=== PATIENT | female | born 1955 | race Caucasian/White ===

== ENCOUNTER → 2017-04-16 | Outpatient (CLI) | payer BC ==
[~2017-04-16] MED LIST: LEVO75TA5 PO; LISI1TAB7 PO; PRAV80TA2 PO
--- NOTE | 2017-04-17 17:28 | KCIC ---
Bilateral digital screening mammograms with CAD: HISTORY COMPARISON Comparison is made to previous study dated 08/25/2015. FINDINGS Breast density category B. The skin and nipples show no abnormalities. No abnormal lymph nodes are seen in the axilla. The breast parenchyma shows scattered fibroglandular density. There are no dominant masses, suspicious calcifications or architectural distortions. Benign appearing calcifications are present IMPRESSION No evidence of malignancy. Recommend routine annual mammographic screening. This study was interpreted with the benefit of Computerized Aided Detection (CAD). Mammography is not 100% sensitive in detecting breast cancer. Therefore, a self breast exam and a clinical breast exam are very important. A negative mammogram does not negate a clinically suspicious finding and should not result in a delay in biopsying a clinically suspicious abnormality. BI-RADS category 2. Benign. This patient's information has been entered into a reminder system for the patient to be notified with the results of this examination and a target date for her next mammograms. Electronically signed by: Reina Reese MD (April 17, 2017 17:27:09)
== END | disposition home or self-care (01) ==
LOC: KCIC MAMMO 16:05
PROVIDERS: ATTEND Family Medicine
DX: Z12.31 Encounter for screening mammogram for malignant neoplasm of breast (principal)
CPT/HCPCS: G0202; 77067

== ENCOUNTER → 2019-08-17 | Outpatient (CLI) | payer OTHER ==
[~2019-08-17] MED LIST changes: +LISI1TAB20 PO; -LISI1TAB7 PO
--- NOTE | 2019-08-17 17:53 | KCIC ---
Bilateral digital screening mammograms with 3-D tomosynthesis: Reason for examination: Routine screening. Comparison is made to previous studies dated 04/16/2017 and 08/25/2015. Bilateral mammograms in CC and oblique projections were obtained with 2-D imaging and 3-D tomosynthesis imaging on a Siemens Inspiration unit and reviewed on the workstation. Interpretation was made with the benefit of CAD. The skin and nipples show no abnormalities. No abnormal axillary lymph nodes are seen. The breast parenchyma shows scattered fatty and fibroglandular density. (Breast density: Category B.) There are small nodular parenchymal densities seen bilaterally which appear to be stable. There are no new dominant masses, suspicious calcifications or architectural distortion. Benign calcifications are present. Impression: No evidence of malignancy. Recommend routine screening. BI-RAD Category 2: Benign. "Our facility is accredited by the [employer] Mammography Program." This patient's information has been entered into a reminder system for the patient to be notified with the results of her examination and a target date for the next mammogram. Electronically signed by: Rosa Reese MD (08/17/2019 5:50 PM) [id number]
== END | disposition home or self-care (01) ==
LOC: KCIC MAMMO 16:03
PROVIDERS: ATTEND Family Medicine
DX: Z12.31 Encounter for screening mammogram for malignant neoplasm of breast (principal); N64.89 Other specified disorders of breast
CPT/HCPCS: 77063; 77067

== ENCOUNTER → 2021-03-08 | Day surgery (SDC) | payer OTHER ==
[~2021-03-08] MED LIST changes: +IV RINGERS,LACTATED 1000ML 1,000 ML IV ONE; +PROPOFOL 10 MG/ML (20ML) VIAL. IV ONE
[2021-03-08 08:55] VITALS: BP 153/74
--- NOTE | 2021-03-10 11:16 | PATHOLOGY ---
[facility] Accession Number: [id number] . 01 Material submitted: . esophagus - DISTAL ESOPHAGEAL BIOPSY. Modifiers: distal . 01 Clinical history: . GERD . EGD . EPIGASTRIC PAIN . 02 Diagnosis: Esophageal biopsies, distal esophagus: - Reflux esophagitis. . ([facility]:mm; 03/10/2021) [facility] 03/10/2021 1014 Local . 02 Comment: Sections of the distal esophageal biopsy reveal multiple segments of tangentially-oriented and obviously hyperplastic squamous esophageal mucosa, in addition to a segment of gastric mucosa showing mild chronic inflammation. The findings are consistent with reflux esophagitis. There is no evidence of Higgins's change, dysplasia, or malignancy. . ([facility]:mm; 03/10/2021) . 02 Electronically signed: . Devaughn Ramirez MD, Pathologist NPI- [id number] . 01 Gross description: . The specimen is received in formalin, labeled "Marilee Cigich, distal esophageal biopsies". Received are four segments of pale ramírez tissue ranging in size from 0.2-0.5 cm in maximum dimensions. The specimen is submitted entirely in cassette A1. ([facility]; 03/09/2021) [facility] 03/09/2021 1200 Local . 02 Pathologist provided ICD-10: K21.00 . 02 CPT . 708029 Specimen Comment: A courtesy copy of this report has been sent to [phone], [phone] Specimen Comment: [id number] Specimen Comment: Report sent to / DR SERVIN Performed at: [address], [place], [place] [id number] MD Marshall France MD Phone: [phone] Performed at: 02 [facility] [address] [place], [place] [id number] MD Devaughn Ramirez MD Phone: [phone]
== END | disposition home or self-care (01) ==
LOC: ENDOS 07:33
PROVIDERS: ATTEND Internal Medicine Gastroenterology
DX: R13.10 Dysphagia, unspecified (principal); R12 Heartburn; K21.00 Gastro-esophageal reflux disease with esophagitis, without bleeding; K31.89 Other diseases of stomach and duodenum; E78.00 Pure hypercholesterolemia, unspecified; I10 Essential (primary) hypertension; G47.30 Sleep apnea, unspecified; E66.9 Obesity, unspecified; E11.9 Type 2 diabetes mellitus without complications; E03.9 Hypothyroidism, unspecified; Z20.822 Contact with and (suspected) exposure to COVID-19; Z90.49 Acquired absence of other specified parts of digestive tract; Z98.890 Other specified postprocedural states; Z79.899 Other long term (current) drug therapy
CPT/HCPCS: 43239; 43450; 87426; 88305; J2704

== ENCOUNTER 2021-04-28 11:59 | Emergency (ER) | payer OTHER ==
[~2021-04-28] VITALS: Ht 167.6 cm; Wt 92.2 kg
[~2021-04-28 11:59] MED LIST changes: -IV RINGERS,LACTATED 1000ML 1,000 ML IV ONE; -PROPOFOL 10 MG/ML (20ML) VIAL. IV ONE
--- NOTE | 2021-04-28 12:53 | RAD ---
EXAM: Left shoulder, 2 views. HISTORY: Pain. COMPARISON: None. FINDINGS: 2 views of the shoulder obtained. There is a mildly displaced comminuted humeral head fract ure with involvement of the greater tuberosity. IMPRESSION: Displaced humeral head fracture. Electronically signed by: Alysa Palacios MD (04/28/2021 12:51 PM) [id number]
[2021-04-28] MEDS: ONDANSETRON PF 4 MG/2 ML VIAL. IV ONE (13:08)
[2021-04-28] MEDS: fentaNYL PF VIAL 100 MCG/2 ML VIAL IV ONE (13:08)
--- NOTE | 2021-04-28 13:10 | ED.ADGEN ---
General Adult EDM: Chief Complaint: SHOULDER INJURY HPI: HPI: Patient is a 65 year old female who presents emergency department with complaints of left shoulder pain after tripping and falling at [facility]. She denies any head injury, neck pain, or back pain. Patient denies any numbness, tingling, or decreased sensation of the affected extremity. She denies any dizziness, chest pain, palpitations, or syncope prior to the fall. She currently rates her pain a 9 out of 10 on the pain scale, she denies any alleviating factors, the pain is worse with palpation or movement. Review of Systems: Review of Systems: Complete ROS is negative unless otherwise noted in HPI. Current Medications: Current Medications Medications (Trade) Dose Ordered Sig/Susan Start Time Stop Time Status Last Admin Dose Admin Fentanyl Citrate (Fentanyl 2ml Vial) 50 mcg 1X ONCE 04/28/21 14:00 04/28/21 14:02 DC 04/28/21 14:10 50 MCG Ondansetron HCl (Zofran) 4 mg 1X ONCE 04/28/21 12:45 04/28/21 12:46 DC 04/28/21 13:08 4 MG Allergies: Allergies: Allergies Coded Allergies Type Severity Reaction Last Updated Verified No Known Drug Allergies 03/08/21 No Physical Exam: PE: See Above Constitutional: Well developed, well nourished, no acute distress, non-toxic appearance. [] HENT: Normocephalic, atraumatic, bilateral external ears normal, nose normal. [] Eyes: PERRLA, EOMI, conjunctiva normal, no discharge. [] Neck: Normal range of motion, no stridor. [] Cardiovascular:Heart rate regular rhythm Lungs & Thorax: Respirations even and unlabored, no retractions, no respiratory distress Skin: Warm, dry, no erythema, no rash. [] Extremities: Shoulder: Proximal tenderness to palpation, no crepitus, no obvious deformity, 2+ radial pulse, no cyanosis, ROM limited due to pain, 1+ edema to proximal humerus Neurologic: Alert and oriented X 3, normal sensation, no focal deficits noted. [] Psychologic: Affect normal, judgement normal, mood normal. [] Current Patient Data: Vital Signs: Vital Signs Date Time Temp Pulse Resp B/P (MAP) Pulse Ox O2 Delivery O2 Flow Rate FiO2 04/28/21 14:11 98.3 70 19 140/66 (90) 98 Room Air 98.3 EKG: EKG: [] Heart Score: C/O Chest Pain: No Radiology/Procedures: Radiology/Procedures: PROCEDURE: SHOULDER 2+V LEFT EXAM: Left shoulder, 2 views. HISTORY: Pain. COMPARISON: None. FINDINGS: 2 views of the shoulder obtained. There is a mildly displaced co mminuted humeral head fracture with involvement of the greater tuberosity. IMPRESSION: Displaced humeral head fracture. Electronically signed by: Alysa Palacios MD (04/28/2021 12:51 PM) [id number] [] Course & Med Decision Making: Course & Med Decision Making Pertinent Labs and Imaging studies reviewed. (See chart for details) [id number] spoke with Dr. Luciano about the patient he recommends a shoulder immobilizer or sling and have patient follow-up with him in office next week. [] Dragon Disclaimer: Dragon Disclaimer: This electronic medical record was generated, in whole or in part, using a voice recognition dictation system. Departure Departure Impression: Primary Impression: Left humeral fracture Disposition: 01 HOME / SELF CARE / HOMELESS Condition: STABLE Referrals: ARIELLE SERVIN MD (PCP) CHRISTOPHE LUCIANO DO Patient Instructions: Humerus Fracture, Treated with Immobilization Additional Instructions: Fill the prescription and use as directed. Wear the immobilize that was applied. Call Dr. Luciano's office this afternoon to schedule follow up appointment. Return to the ER if symptoms worsen or fever develops. Scripts Hydrocodone Bit/Acetaminophen (HYDROCODONE-APAP 5-325 ) 1 Tab Tablet 1 TAB PO PRN Q6HRS PRN for PAIN for 5 Days, #20 TAB 0 Refills Prov: RACHEL REY APRN 04/28/21 Splinting Splinting : Location: left arm Pre-Made Type: velcro Splint: shoulder immobilizer Pre-Proc Neuro Vasc Exam: normal Post-Proc Neuro Vasc Exam: normal, unchanged from pre-exam Progress pt tolerated procedure well, no complications, reports reduced pain after application. Problem Qualifiers Primary Impression: Left humeral fracture Encounter type: initial encounter Humerus Location: proximal Fracture type: closed Fracture morphology: other fracture Fracture alignment: displaced Qualified Codes: S42.292A - Other displaced fracture of upper end of left humerus, initial encounter for closed fracture RACHEL REY APRN April 28, 2021 13:10
[2021-04-28] MEDS ORDERED: HYDR-2761 PO (13:56)
[2021-04-28] MEDS: fentaNYL PF VIAL 100 MCG/2 ML VIAL IVP ONE (14:10)
[2021-04-28 14:45] VITALS: BP 141/69
== END 2021-04-28 15:08 | disposition home or self-care (01) ==
LOC: ER 11:59
DX: S42.292A Other displaced fracture of upper end of left humerus, initial encounter for closed fracture (principal); W01.0XXA Fall on same level from slipping, tripping and stumbling without subsequent striking against object, initial encounter; Y93.89 Activity, other specified; Y92.89 Other specified places as the place of occurrence of the external cause; Y99.8 Other external cause status
CPT/HCPCS: 29105; 73030; 96374; 96375; 96376; 99285; J2405; J3010

== ENCOUNTER → 2021-07-21 | Outpatient (CLI) | payer OTHER ==
[~2021-07-21] MED LIST changes: +HYDR-2761 PO
--- NOTE | 2021-07-21 13:27 | KCIC ---
Examination: MRI of the left shoulder without contrast HISTORY: Left shoulder pain, displaced fracture of the left humerus, continued decreased range of mot ion COMPARISON: Radiograph 04/20/2021 TECHNIQUE: Multiplanar, multisequence MR imaging of the left shoulder were performed without contrast FINDINGS: The long head of the biceps tendon within the bicipital groove. The attachment of the long head the b iceps tendon to the superior labral anchor grossly appears intact. Moderate increased signal in the i ntra-articular portion of the biceps tendon likely tendinosis. The attachment of the subscapularis te ndon grossly appears intact. Moderate increased signal with thickening identified in the supraspinatu s tendon likely tendinosis. The attachment of the infraspinatus tendon and teres minor tendon grossly appears intact. There is comminuted minimal displaced fracture of the neck of the humerus with the fracture line exte nding to the greater tuberosity. The visualized labrum grossly appears unremarkable. Moderate joint s pace loss identified in the glenohumeral joint, acromioclavicular joint likely degenerative changes. The acromion is type II. There is obscuration of fat in the rotator interval. Small amount of fluid identified in the shoulder joint. IMPRESSION: 1. Comminuted minimal displaced fracture of the neck of the humerus with the fracture line extending to the greater tuberosity again identified. 2. Moderate tendinosis of the supraspinatus, subscapularis tendons, long head of the biceps tendon. 3. Moderate degenerative changes glenohumeral, acromioclavicular joint. 4. Obscuration of fat in the rotator interval. Correlate for adhesive capsulitis. Electronically signed by: Apollo [place] MD (07/21/2021 1:25 PM) [id number]
== END ==
LOC: KCIC MRI 09:46
PROVIDERS: ATTEND Orthopaedic Surgery
DX: S42.252D Displaced fracture of greater tuberosity of left humerus, subsequent encounter for fracture with routine healing (principal); M19.012 Primary osteoarthritis, left shoulder; M75.82 Other shoulder lesions, left shoulder; M25.512 Pain in left shoulder; X58.XXXD Exposure to other specified factors, subsequent encounter
CPT/HCPCS: 73221

== ENCOUNTER → 2021-10-24 | Outpatient (CLI) | payer OTHER ==
[~2021-10-24] MED LIST changes: -LISI1TAB20 PO; +LISI1TAB39 PO
[2021-10-24 10:49] LABS: BILIRUBIN,URINE SMALL (NEG); CLARITY,URINE CLEAR; COLOR,URINE YELLOW; NITRITE,URINE NEGATIVE (NEG); PROTEIN,URINE NEGATIVE (NEG-TRACE)
[2021-10-24 10:58] LABS: BACTERIA,URINE FEW /HPF (0-FEW)
[2021-10-24 10:59] LABS: RBC,URINE 0 /HPF (0-2)
[2021-10-24 11:13] LABS: ALBUMIN 3.8 g/dL (3.4-5.0); ALBUMIN/GLOBULIN RATIO 1.2 (1.0-1.7); CALCIUM 8.4 mg/dL (8.5-10.1); CREATININE 0.8 mg/dL (0.6-1.0); GFR 72.2; POTASSIUM 4.3 mmol/L (3.5-5.1); TOTAL BILIRUBIN 0.8 mg/dL (0.2-1.0)
[2021-10-24 11:14] LABS: CHOLESTEROL/HDL RATIO 5.4
[2021-10-25 02:12] LABS: HEMOGLOBIN A1C 6.3 % (4.8-5.6)
[2021-10-25 09:32] LABS: FECAL OB PT NEGATIVE (NEG)
== END ==
LOC: LAB 09:56
PROVIDERS: ATTEND Family Medicine
DX: Z12.11 Encounter for screening for malignant neoplasm of colon (principal); I10 Essential (primary) hypertension; R73.01 Impaired fasting glucose; R78.5 Finding of other psychotropic drug in blood
CPT/HCPCS: 36415; 80053; 80061; 81001; 82274; 83036; 83721; 87086